=== PATIENT | female | born 1945 ===

== ENCOUNTER 2021-03-15 17:36 | Emergency (ER) | payer MEDICARE, OTHER ==
[~2021-03-15] VITALS: Ht 170.2 cm; Wt 81.3 kg
--- NOTE | 2021-03-15 18:03 | NUR ---
Seen by PA in triage room now.
[2021-03-15 19:16] LABS: ALANINE AMINOTRANSFERASE 31 U/L (12-78); ALBUMIN 3.1 g/dL (3.4-5.0); ANION GAP 3 mmol/L (5-15); CALCIUM 10.3 mg/dL (8.5-10.1); CHLORIDE 109 mmol/L (98-107); CREATININE 0.88 mg/dL (0.55-1.02)
[2021-03-15 19:18] LABS: ALKALINE PHOSPHATASE 78 U/L (45-117); BILIRUBIN,TOTAL 0.3 mg/dL (0.2-1.0); TOTAL PROTEIN 7.1 g/dL (6.4-8.2)
[2021-03-15 19:19] LABS: BASOPHILS % (AUTO) 1 % (0-1); EOSINOPHILS % (AUTO) 2 % (1-7); LYMPHOCYTES % (AUTO) 33 % (22-44); MEAN CORPUSCULAR HGB CONC 32.5 g/dL (32.4-35.8); MEAN PLATELET VOLUME 7.8 fL (7.4-10.4); MONOCYTES % (AUTO) 8 % (2-9); NEUTROPHILS % (AUTO) 56 % (42-75); PLATELET COUNT 425 x10^3/uL (130-400); RED BLOOD COUNT 4.06 x10^6/uL (3.82-5.3); RED CELL DISTRIBUTION WIDTH 17.4 % (9.6-15.2)
--- NOTE | 2021-03-15 20:17 | NUR ---
PATIENT AMBULATORY TO RESTROOM FOR URINE SAMPLE.
[2021-03-15 20:29] VITALS: BP 133/72
[2021-03-15 21:23] LABS: MICROSCOPIC INDICATED
[2021-03-15] MEDS ORDERED: ONDANSETRON 2MG/ML, 2ML ONE (21:26)
[2021-03-15] MEDS ORDERED: HYDROmorphone 2 MG/ML, 1ML ONE (21:26)
[2021-03-15] MEDS ORDERED: SODIUM CHLORIDE FLUSH 10ML SYR IVF ONE (21:30)
[2021-03-15] MEDS ORDERED: ONDANSETRON 2MG/ML, 2ML IVPush ONE (21:30)
[2021-03-15] MEDS ORDERED: HYDROmorphone 1 MG/ML, 1ML INJ IV ONE (21:30)
[2021-03-15 21:51] LABS: TROPONIN I < 0.015 ng/mL (0.000-0.045)
--- NOTE | 2021-03-15 22:50 | NUR ---
PATIENT IN CT AT THIS TIME.
--- NOTE | 2021-03-15 23:02 | NUR ---
PATIENT BACK FROM CT AT THIS TIME. WILL CONTINUE TO MONITOR.
[2021-03-15] MEDS ORDERED: OMNIPAQUE 350 MG/ML, 100ML BOTTLE ONE (23:57)
[2021-03-16] MEDS ORDERED: CEFDINIR 300 MG CAPSULE ONE (00:36)
--- NOTE | 2021-03-16 00:46 | NUR ---
Patient given discharge instructions and they have confirmed that they understand the instructions. Patient ambulatory with steady gait. NAD, all questions answered appropriately, denies additional needs at this time. No personal belongings left in room after discharge.
[2021-03-16] MEDS ORDERED: CEFDINIR 300 MG CAPSULE PO ONE (01:00)
== END 2021-03-16 00:53 | disposition home or self-care (01) ==
LOC: ED 21:11
DX: N30.90 Cystitis, unspecified without hematuria (principal); R10.11 Right upper quadrant pain; E11.9 Type 2 diabetes mellitus without complications
CPT/HCPCS: 36415; 74177; 76700; 80053; 81001; 83690; 84484; 85025; 87077; 87086; 93005; 96374; 96375; 99285; J1170; J2405; Q9967